=== PATIENT | male | born 1975 | race Caucasian/White ===

== ENCOUNTER 2020-09-11 02:12 | Emergency (ER) | payer SELFPAY ==
[~2020-09-11] VITALS: Ht 188 cm; Wt 77.1 kg
[2020-09-11 02:20] VITALS: BP_SYST 126
--- NOTE | 2020-09-11 02:20 | NUR ---
Patient to ER bed [address] to gown for evaluation. Side rails up.
--- NOTE | 2020-09-11 04:00 | NUR ---
NIVIA Pack at bedside examining patient.
[2020-09-11 04:15] VITALS: BP_SYST 121
--- NOTE | 2020-09-11 04:15 | NUR ---
Patient given written and verbal discharge instructions and verbalizes understanding. ER MD discussed with patient the results and treatment provided. Patient in stable condition. ID arm band removed. no Rx of given. Patient educated on pain management and to follow up with PMD. Pain Scale 0/10. Opportunity for questions provided and answered. Medication side effect fact sheet provided.
== END 2020-09-11 04:15 ==
LOC: SED 02:12
DX: F15.10 Other stimulant abuse, uncomplicated (principal)
CPT/HCPCS: 99283